=== PATIENT | male | born 1955 | race Caucasian/White ===

== ENCOUNTER 2020-02-06 08:24 | Day surgery (SDC) | payer OTHER ==
[2020-02-05 10:57] VITALS: BMI 24.7
[2020-02-06 08:37] VITALS: TEMP 98.1
[2020-02-06] MEDS ORDERED: PROPOFOL 20 ML ONE ×3 (08:54)
[2020-02-06] MEDS ORDERED: LIDOCAINE HCL/PF 2% SDV 5ML VIAL ONE (08:54)
[2020-02-06 11:26] VITALS: BP 124/64; PULSE 51
--- NOTE | 2020-02-09 17:32 | PATH ---
Surgical Pathology Report Patient Name: ALON FERNANDEZ [facility]. Rec. #: [id number] /Age/Gender: 1955 (Age: 64) / M Account: [id number] Location: [facility] Taken: 02/06/2020 Received: 02/06/2020 Reported: 02/09/2020 Physicians: Brea Bob M.D. Specimen(s) Received POLYP RECTUM (3) Clinical History Colonoscopy screening Postoperative diagnosis: Hemorrhoids and polyp Final Diagnosis RECTUM, POLYPS (3), BIOPSY: HYPERPLASTIC POLYPS. Electronically Signed Gaby Rutledge M.D. Gross Description Received in formalin, labeled "3 polyps rectum" are 3 wiggins, irregular portions of soft tissue averaging 0.1 cm. in greatest dimension. The specimens are submitted in toto in one cassette. 02/06/2020 [facility]02/06/2020
== END 2020-02-06 11:00 | disposition home or self-care (01) ==
LOC: FASU-ENDO 08:24
PROVIDERS: ATTEND Internal Medicine Gastroenterology
PROC: 0DBP8ZX Excision of Rectum, Via Natural or Artificial Opening Endoscopic, Diagnostic (ICD-10-PCS; principal; 2020-02-06 09:49)
DX: Z12.11 Encounter for screening for malignant neoplasm of colon (principal); K64.1 Second degree hemorrhoids; K62.1 Rectal polyp
CPT/HCPCS: 88305-TC